=== PATIENT | male | born 1945 | race Caucasian/White ===

== ENCOUNTER 2018-09-20 05:56 | Day surgery (SDC) | payer OTHER ==
[~2018-09-20] VITALS: Ht 182.9 cm; Wt 95.3 kg
[~2018-09-20 05:56] MED LIST: ASPI81TA27 PO; BUPR300T28 PO; DULO1CAP2 PO; GABA-339 PO; LISI-646 PO; METH4TAB7 PO; MORP1CAP48 PO; ROPI3TAB4 PO; TRAZ100T2 PO; VERA240C2 PO
[2018-09-20] MEDS ORDERED: ceFAZolin 1GM/50ML 100 ML IV ONE (07:26)
[2018-09-20] MEDS ORDERED: LIDOCAINE 1% INJ PF 5ML AMP ONE (07:42)
[2018-09-20] MEDS ORDERED: SUCCINYLCHOLINE CHLORIDE 20 MG/ML 10ML VIAL IV ONE (07:44)
[2018-09-20] MEDS ORDERED: NALOXONE HCL 0.4 MG/ML VIAL IV PRN (07:45)
[2018-09-20] MEDS ORDERED: ONDANSETRON HCL 4 MG/2 ML VIAL IV ONE (07:45)
[2018-09-20] MEDS ORDERED: MORPHINE SULFATE 4 MG/ML SYR/VIAL IV PRN (07:45)
[2018-09-20] MEDS ORDERED: MIDAZOLAM HCL 1MG/1ML-2 ML VIAL ONE ×2 (07:49→09:00)
[2018-09-20] MEDS ORDERED: PROPOFOL 10 MG/ML 20 ML IV ONE ×2 (07:50→08:54)
[2018-09-20] MEDS ORDERED: fentaNYL CITRATE 100 MCG/2 ML VL ONE (07:56)
[2018-09-20] MEDS ORDERED: METOCLOPRAMIDE HCL 5MG/ml INJ 2ml VIAL ONE (07:57)
[2018-09-20] MEDS ORDERED: diphenhdrAMINE HCL 50 MG/1 ML VL ONE (08:00)
[2018-09-20] MEDS ORDERED: IOHEXOL 300 MG/ML 100ML BOTTLE IJ ONE (08:04)
[2018-09-20] MEDS: LIDOCAINE W/ EPINEPHRINE 1% 20ML VIAL ONE ×2 (08:04→08:35)
[2018-09-20] MEDS: BUPIVACAINE W/ EPINEPH 0.25% INJ 50ML MDV ONE ×2 (08:04→08:35)
[2018-09-20] MEDS ORDERED: HYDROCORTISONE SOD SUCC 100 MG/2ML INJ VIAL ONE (08:06)
[2018-09-20 09:51] VITALS: BP 136/87
== END 2018-09-20 10:06 | disposition home or self-care (01) ==
LOC: SUR 05:56
PROVIDERS: ATTEND Anesthesiology Pain Medicine
DX: S32.010A Wedge compression fracture of first lumbar vertebra, initial encounter for closed fracture (principal); M19.90 Unspecified osteoarthritis, unspecified site; G47.33 Obstructive sleep apnea (adult) (pediatric); K21.9 Gastro-esophageal reflux disease without esophagitis; I10 Essential (primary) hypertension; F32.9 Major depressive disorder, single episode, unspecified; G62.9 Polyneuropathy, unspecified; Z85.46 Personal history of malignant neoplasm of prostate; Z96.651 Presence of right artificial knee joint; Z96.641 Presence of right artificial hip joint; Z86.73 Personal history of transient ischemic attack (TIA), and cerebral infarction without residual deficits; Z98.890 Other specified postprocedural states
CPT/HCPCS: 22514; 22515; 72100; 76001; A4215; J0330; J0690; J1200; J1720; J2250; J2704; J2765; J3010; J7030; Q9967